=== PATIENT | male | born 1975 | race African-American/Black ===

== ENCOUNTER 2018-08-06 06:00 | Inpatient (IN) | payer OTHER ==
[2018-08-06] VITALS (17 sets, daily range): BP systolic 106–182; BP diastolic 72–91
[~2018-08-06] VITALS: Ht 185.4 cm; Wt 93.1 kg
[2018-08-06] MEDS ORDERED: BENTYL 10 MG CA10 M1 PO (06:08)
[2018-08-06] MEDS ORDERED: BYSTOLIC20 MG PO (06:19)
[2018-08-06 06:22] LABS: ABSOLUTE NEUTROPHILS 8.8 thou/uL (1.4-8.2); BASOPHILS 0.9 % (0.0-2.0); EOSINOPHILS 0.5 % (0.0-3.0); HEMATOCRIT 41.8 % (42.0-52.0); HEMOGLOBIN 14.6 gm/dL (14.0-18.0); LYMPHOCYTES 17.3 % (24.0-44.0); MCH 33.4 pg (26.0-34.0); MCHC 34.9 g/dL (28.0-37.0); MCV 95.8 fL (80.0-100.0); MONOCYTES 3.7 % (1.0-8.0); PLATELET COUNT 273 thou/uL (150-400); POLYS 77.6 % (36.0-66.0); RBC 4.36 mil/uL (4.50-6.00); RDW 13.3 % (10.5-14.5); WBC 11.4 thou/uL (4.0-11.0)
[2018-08-06 06:36] LABS: ALBUMIN 4.2 g/dL (3.4-5.0); CALCIUM 9.7 mg/dL (8.5-10.1); CREATININE 1.5 mg/dL (0.7-1.3); POTASSIUM 4.3 mmol/L (3.5-5.1); TOTAL BILIRUBIN 0.9 mg/dL (<0.1-1.0); TOTAL PROTEIN 7.8 g/dL (6.4-8.2)
[2018-08-06 07:04] LABS: APTT 26.9 Seconds (24.5-32.8); INR 1.2; PROTIME 12.1 Seconds (9.3-11.4)
[2018-08-06 08:40] LABS: HEMATOCRIT 27.4 % (42.0-52.0)
[2018-08-06 08:41] LABS: HEMOGLOBIN 9.1 gm/dL (14.0-18.0)
[2018-08-06 09:37] LABS: HEMATOCRIT 40.4 % (42.0-52.0)
[2018-08-06 09:39] LABS: HEMOGLOBIN 13.8 gm/dL (14.0-18.0)
--- NOTE | 2018-08-06 13:04 | NUR ---
PT TO PROCEDURE /C ENDOSCOPY STAFF
--- NOTE | 2018-08-06 17:52 | NUR ---
PT A/O X 4 - WAKES EASILY AND IS PLEASANT - HAS SLEPT MAJORITY OF THE DAY - VSS
--- NOTE | 2018-08-06 18:52 | EKG ---
[address] [address] ELECTROCARDIOGRAM REPORT Name: ISRAEL LOTT Room #: 245-P ADM IN M.R.#: [id number] ������������������ Admission: 08/06/18 ������������������ Attend Phys: Crystal Escobar Discharge: ������������������ Date of : 75 Report #: [id number] ����������������������������������������������������������������� [id number] THIS REPORT FOR: //name// [facility] ED Test Date: 2018-08-06 Test Time: 06:38:53 Pat Name: ISRAEL LOTT Department: Room: [facility] Gender: M Backend Tester: david : 1975 Requested By: Te Dumont Order Number: [id number] MD: Ronen Trejo Measurements Intervals [place] Rate: 69 P: 85 [place]: 160 QRS: 70 QRSD: 91 T: 23 QT: 437 QTc: 469 Interpretive Statements Sinus rhythm left atrial enlargement Nonspecific ST-T wave changes No previous ECG available for comparison Electronically Signed On 08-06-2018 18:52:18 CDT by Ronen Trejo [email or web address] ��������������������������������������������� <ELECTRONICALLY SIGNED> ���������������������������������������� By: Ronen Terjo MD ��������������������������������������������� 08/06/18 1852 0638 7 Ronen Trejo MD /SHELLIE
[2018-08-07] VITALS (15 sets, daily range): BP systolic 148–198; BP diastolic 69–111
[2018-08-07 05:00] LABS: HEMATOCRIT 38.6 % (42.0-52.0); HEMOGLOBIN 13.4 gm/dL (14.0-18.0)
--- NOTE | 2018-08-07 05:09 | NUR ---
Patient making good progress towards outcome goals. Vital signs and rhythm stable. Tolerating clear liquids. IVFluids infusing. No signs of active bleeding. Uses call light appropriate for needs. Patient back to sleep after Tylenol given for low back pain. Urine output dark vianey.
--- NOTE | 2018-08-07 05:50 | NUR ---
Patient c/o nausea, dry heaves, no vomiting. Scheduled Reglan given. Protonix given early. Belching and passing tons of gas. No BM since 08/03, states he has ot been eating. Atteptimg to have BM now.
--- NOTE | 2018-08-07 06:10 | NUR ---
PRN Labetelol given for 198/83, BP now down to 148/74 HR 55
--- NOTE | 2018-08-07 12:58 | NUR ---
SUMMARY: ALERT AND ORIENTED AND HAS DENIED PAIN. UP AD BLANCA, DENIES NAUSEA AND IS TOLERATING DIET WELL. CONTINUES TO BE HYPERTENSIVE WITH SBP IN THE 150'S STARTED ON NORVASC THIS MORNING. ORDERS TO TRANSFER OUT OF ICU RECEIVED. THIS AFTERNOON PATIENT STATED HE WILL BE LEAVING TO GO HOME TODAY AMA. DR. PARKS PAGED AND STATED HE WILL DISCHARGE PATIENT. IV'S DC'D.
--- NOTE | 2018-08-07 13:18 | NUR ---
DC INSTRUCTIONS GIVEN TO PATIENT, INSTRUCTED TO FIND A PCP AND FOLLOW UP TO TRY AND GET HTN AND PAIN UNDER CONTROLL AND FOLLOW UP WITH A GI DOCTOR IN 2-3 MONTHS. ESCORTED OFF THE UNIT BY ROLANDO GARZA.
== END 2018-08-07 13:15 | disposition home or self-care (01) | DRG 378 ==
LOC: ER 06:00 → EROBS 07:24 → ICU 08:07
PROVIDERS: Emergency Medicine; ADMIT Hospitalist
PROC: 0DJ08ZZ Inspection of Upper Intestinal Tract, Via Natural or Artificial Opening Endoscopic (ICD-10-PCS; principal; 2018-08-06)
DX: K29.71 Gastritis, unspecified, with bleeding (principal); N17.9 Acute kidney failure, unspecified; D62 Acute posthemorrhagic anemia; K29.81 Duodenitis with bleeding; K31.4 Gastric diverticulum; F43.10 Post-traumatic stress disorder, unspecified; K31.89 Other diseases of stomach and duodenum; F12.188 Cannabis abuse with other cannabis-induced disorder; R11.10 Vomiting, unspecified; T40.7X5A Adverse effect of cannabis (derivatives), initial encounter; E11.9 Type 2 diabetes mellitus without complications; F17.210 Nicotine dependence, cigarettes, uncomplicated; I10 Essential (primary) hypertension; Z79.84 Long term (current) use of oral hypoglycemic drugs; Y92.89 Other specified places as the place of occurrence of the external cause; Z79.1 Long term (current) use of non-steroidal anti-inflammatories (NSAID)
CPT/HCPCS: 10078; 62110; 62900